=== PATIENT | female | born 2000 | race Caucasian/White ===

== ENCOUNTER 2022-04-13 19:23 | Day surgery (SDC) | payer MEDICAID, OTHER ==
[2022-04-13 19:51] VITALS: BMI 27.8
[2022-04-13 20:25] LABS: Bilirubin Neg (Negative); Blood, Urine 250 (Negative); CAUTI Indications for Culture Pregnancy; Clarity Slightly Cloudy (Clear); Glucose, Urine (Dipstick) Normal (Negative); Ketone, Urine Negative (Negative); Leukocyte 500 (Negative); Nitrite Negative (Negative); Protein, Urine (Dipstick) 500 mg/dl (Neg-Trace); Urobilinogen Normal mg/dL (Less than 2)
[2022-04-13] MEDS ORDERED: Acetaminophen 325 MG TAB PO SCH (20:30)
[2022-04-13 20:35] LABS: Urine Culture Reflex Yes Yes
[2022-04-13 20:43] LABS: RBC/HPF 21-50 HPF (0-3); WBC/HPF 21-50 HPF (0-3)
[2022-04-13 20:44] LABS: Bacteria/HPF 2+ HPF (None Seen); Squamous Epithelial 0-3 HPF (0-3); Transitional Epithelial 0-3 HPF (None Seen)
[2022-04-13 21:25] LABS: ALT (SGPT) 11 U/L (8-55); AST (SGOT) 15 U/L (5-34); Albumin 3.7 g/dL (3.5-5.0); Alkaline Phosphatase 153 U/L (40-100); Anion Gap 13 mmol/L (10-20); BUN (Urea Nitrogen) 6 mg/dL (7.0-18.7); Bilirubin, Total 0.2 mg/dL (0.2-1.2); Calc. Creatinine Clearance 206 mL/min (70-130); Calcium 9.2 mg/dL (7.8-10.44); Carbon Dioxide 23 mmol/L (22-29); Chloride 104 mmol/L (98-107); Estimated GFR 132; Globulin 3.1 g/dL (2.4-3.5); Glucose 92 mg/dL (70-105); Potassium 4.1 mmol/L (3.5-5.1); Protein, Total 6.8 g/dL (6.0-8.3); Sodium 136 mmol/L (136-145)
[2022-04-13 21:50] LABS: #Eosinphils 0.2 10x3/uL (0.0-0.5); #Monocytes 1.1 10x3/uL (0.0-1.1); #Neutrophils 10.7 10x3/uL (1.5-8.4); %Basophils 0.3 % (0.0-2.0); %Eosinophils 1.1 % (0.0-6.0); %Lymphocytes 16.1 % (18.0-47.0); %Monocytes 7.4 % (0.0-10.0); %Neutrophils 74.8 % (40.0-75.0); Hemoglobin 11.3 g/dL (12.0-15.5); Mean Corpuscular HGB CONC 32.6 g/dL (32.0-36.0); Mean Corpuscular Hemoglobin 26.9 pg (27.0-33.0); Mean Corpuscular Volume 82.6 fl (81.6-98.3); Mean Platelet Volume 10.2 fl (7.4-10.4); Platelet Count 417 10x3/uL (150-450); RBC Distribution Width 15.6 % (11.5-14.5); White Blood Cell (WBC) Count 14.4 10x3/uL (3.5-10.5)
[2022-04-13] MEDS ORDERED: cefTRIAXone\\ROCEPHIN 1 GM in Sodium Chloride 0.9% 100 ML IVPB SCH (22:00)
[2022-04-13] MEDS ORDERED: Lactated Ringer's 1,000 ML IV SCH (22:00)
[2022-04-13] MEDS ORDERED: Ondansetron PF 4 MG/2 ML Vial IVP SCH (23:15)
== END 2022-04-13 23:42 | disposition home or self-care (01) ==
LOC: CSHLD/OP 19:23
PROVIDERS: ATTEND Obstetrics & Gynecology
DX: O23.43 Unspecified infection of urinary tract in pregnancy, third trimester (principal); N39.0 Urinary tract infection, site not specified; Z3A.39 39 weeks gestation of pregnancy; Z79.899 Other long term (current) drug therapy
CPT/HCPCS: 76770; 76815; 80053; 81001; 85025; 87086; 96361; 96365; 99284; J0696; J3490

== ENCOUNTER 2022-04-20 05:30 | Inpatient (IN) | payer OTHER ==
[2022-04-20] MEDS ORDERED: Bupivacaine 0.25% HCL 30 ML VIAL ONE (08:00)
[2022-04-20] MEDS ORDERED: Sodium Chloride 0.9% (PF) 10 ML VIAL ONE (08:00)
[2022-04-20] MEDS ORDERED: ePHEDrine Sulfate 50 MG/10 ML VIAL ONE (08:00)
[2022-04-20] MEDS ORDERED: Bupivacaine/Epinephrine 0.25% 30 ML VIAL ONE (08:00)
[2022-04-20] MEDS ORDERED: Ondansetron PF 4 MG/2 ML Vial IVP PRN (21:11)
[2022-04-20] MEDS ORDERED: Acetaminophen 500 MG TAB PO PRN (21:11)
[2022-04-20] MEDS ORDERED: Diphenoxylate HCl/Atropine Tablet PO PRN ×2 (21:11)
[2022-04-20] MEDS ORDERED: hydrALAZINE 20 MG/ML VIAL SLOW IVP PRN (21:11)
[2022-04-20] MEDS ORDERED: Butorphanol Tartrate 1 MG/ML VIAL SLOW IVP PRN (21:11)
[2022-04-20] MEDS ORDERED: Lidocaine 1% (PF) 30 ML VIAL SC PRN (21:11)
[2022-04-20] MEDS ORDERED: HYDROcodone/Acetaminophen 5/325 mg Tablet PO PRN ×2 (21:11)
[2022-04-20] MEDS ORDERED: NS w/ Oxytocin 30 units 500 ML IV SCH ×2 (21:11)
[2022-04-20] MEDS ORDERED: Ibuprofen 800 MG TAB PO PRN (21:11)
[2022-04-20] MEDS ORDERED: Misoprostol 200 MCG TAB PR PRN (21:11)
[2022-04-20] MEDS ORDERED: Docusate 100 MG CAP PO PRN (21:11)
[2022-04-20] MEDS ORDERED: Lactated Ringer's 1,000 ML IV SCH (21:11)
[2022-04-20] MEDS ORDERED: Zolpidem Tartrate 5 MG TAB PO PRN (21:11)
[2022-04-20] MEDS ORDERED: Promethazine HCl 25 MG/ML VIAL IM PRN (21:11)
[2022-04-20 22:15] LABS: Hemoglobin 10.9 g/dL (12.0-15.5); Mean Corpuscular HGB CONC 32.8 g/dL (32.0-36.0); Mean Corpuscular Hemoglobin 26.8 pg (27.0-33.0); Mean Corpuscular Volume 81.8 fl (81.6-98.3); Platelet Count 385 10x3/uL (150-450); RBC Distribution Width 15.9 % (11.5-14.5); Red Blood Cell (RBC) Count 4.06 10x6/uL (3.90-5.03); White Blood Cell (WBC) Count 10.4 10x3/uL (3.5-10.5)
[2022-04-20 22:31] VITALS: BMI 29.2
[2022-04-20 22:52] LABS: Syphilis Antibody Nonreactive (Nonreactive); Syphilis Antibody Index 0.03 S/CO (<1.00 Non-Reactive)
[2022-04-20 22:54] LABS: HBSAg Index 0.15 S/CO (0-0.99); HIV (1/2) Antibody/Antigen Non-Reactive (NonReactive); HIV 1/2 INDEX 0.07 S/CO (<1.00); Hep B Surf Ag Non-Reactive S/CO (NonReactive)
[2022-04-21] MEDS: Misoprostol 100 MCG TAB VAG SCH ×3 (02:19→14:53)
[2022-04-21] MEDS ORDERED: Fentanyl 2 mcg/Bup 0.1% Cadd 100 ML ONE (05:04)
[2022-04-21] MEDS ORDERED: diphenhydrAMINE 50 MG/ML VIAL IVP PRN (05:38)
[2022-04-21] MEDS ORDERED: Naloxone HCl 0.4 mg/ml Vial IVP PRN ×2 (05:38)
[2022-04-21] MEDS ORDERED: ePHEDrine Sulfate 50 MG/10 ML VIAL SLOW IVP PRN (05:38)
[2022-04-21] MEDS ORDERED: Moisturizing Cream (Eucerin) 113 GM JAR TOP PRN (05:38)
[2022-04-21] MEDS ORDERED: Acetaminophen 325 MG TAB PO PRN (05:38)
[2022-04-21] MEDS ORDERED: Ondansetron PF 4 MG/2 ML Vial IVP PRN ×2 (05:38→13:01)
[2022-04-21] MEDS ORDERED: Lactated Ringer's 500 ML IV PRN (05:38)
[2022-04-21] MEDS ORDERED: Promethazine HCl 25 MG/ML VIAL IM PRN (05:38)
[2022-04-21] MEDS ORDERED: Fentanyl 2 mcg/Bupivacaine 0.1% Cassette 100 ML EPIDURAL SCH (05:45)
[2022-04-21] MEDS ORDERED: Communication Order-Pharmacy FS SCH (05:45)
[2022-04-21] MEDS ORDERED: Milk Of Magnesia 30 ML UDCUP PO PRN (13:01)
[2022-04-21] MEDS ORDERED: Zolpidem Tartrate 5 MG TAB PO PRN (13:01)
[2022-04-21] MEDS ORDERED: HYDROcodone/Acetaminophen 5/325 mg Tablet PO PRN ×2 (13:01)
[2022-04-21] MEDS ORDERED: Lanolin Ointment 7 GM TUBE TOP PRN (13:01)
[2022-04-21] MEDS ORDERED: diphenhydrAMINE 25 MG CAP PO PRN (13:01)
[2022-04-21] MEDS ORDERED: Preparation H Ointment 28 GM TUBE PR PRN (13:01)
[2022-04-21] MEDS ORDERED: Benzocaine-Menthol 82.5 ML CAN TOP PRN (13:01)
[2022-04-21] MEDS ORDERED: hydrALAZINE 20 MG/ML VIAL SLOW IVP PRN (13:01)
[2022-04-21] MEDS ORDERED: Misoprostol 200 MCG TAB VAG PRN (13:01)
[2022-04-21] MEDS ORDERED: Boostrix 0.5 ML (Tdap) VIAL (>/=7 yrs of age) IM ONE (13:01)
[2022-04-21] MEDS ORDERED: Bisacodyl 10 MG SUPP PR PRN (13:01)
[2022-04-21] MEDS ORDERED: Witch Hazel-Glycerin 1 EACH JAR TOP PRN (13:03)
[2022-04-21] MEDS ORDERED: NS w/ Oxytocin 30 units 500 ML IV SCH (13:15)
[2022-04-21 13:31] LABS: SARS-CoV-2 NAA Rapid Test Not Detected (NotDetected)
[2022-04-21] MEDS: Ibuprofen 800 MG TAB PO SCH ×2 (15:39→21:03)
[2022-04-21] MEDS: Ferrous Sulfate 325 MG TAB PO SCH (16:50)
[2022-04-21] MEDS: Docusate 100 MG CAP PO SCH (21:04)
[2022-04-22 05:05] LABS: Hemoglobin 10.1 g/dL (12.0-15.5); Mean Corpuscular HGB CONC 32.5 g/dL (32.0-36.0); Mean Corpuscular Hemoglobin 26.9 pg (27.0-33.0); Mean Corpuscular Volume 82.7 fl (81.6-98.3); Mean Platelet Volume 9.9 fl (7.4-10.4); Platelet Count 306 10x3/uL (150-450); RBC Distribution Width 16.4 % (11.5-14.5); Red Blood Cell (RBC) Count 3.76 10x6/uL (3.90-5.03); White Blood Cell (WBC) Count 12.7 10x3/uL (3.5-10.5)
[2022-04-22] MEDS: Ibuprofen 800 MG TAB PO SCH ×2 (06:02→13:37)
[2022-04-22] MEDS: Ferrous Sulfate 325 MG TAB PO SCH ×2 (07:19→17:48)
[2022-04-22] MEDS: Docusate 100 MG CAP PO SCH (08:06)
[2022-04-22] MEDS ORDERED: Prenatal Vitamin 1 TAB PO SCH (09:00)
[2022-04-22 11:51] VITALS: BP 126/81; TEMP 98.7
== END 2022-04-22 18:20 | disposition home or self-care (01) | DRG 807 ==
LOC: CSHLD 20:41 → CSHPP 04-21 15:16
PROVIDERS: ADMIT Obstetrics & Gynecology; ATTEND Obstetrics & Gynecology
PROC: 10E0XZZ Delivery of Products of Conception, External Approach (ICD-10-PCS; principal; 2022-04-21)
PROC: 3E0P7VZ Introduction of Hormone into Female Reproductive, Via Natural or Artificial Opening (ICD-10-PCS; 2022-04-21)
PROC: 0UQMXZZ Repair Vulva, External Approach (ICD-10-PCS; 2022-04-21)
DX: O48.0 Post-term pregnancy (principal); Z37.0 Single live birth; O99.02 Anemia complicating childbirth; Z20.822 Contact with and (suspected) exposure to COVID-19; Z3A.40 40 weeks gestation of pregnancy; D64.9 Anemia, unspecified; Z79.899 Other long term (current) drug therapy; O42.02 Full-term premature rupture of membranes, onset of labor within 24 hours of rupture; O71.82 Other specified trauma to perineum and vulva
CPT/HCPCS: 36415; 51702; 85027; 86780; 86850; 86900; 86901; 87340; 87389; J0595; J2590; S0020; U0002

== ENCOUNTER 2024-05-14 17:10 | Emergency (ER) | payer SELFPAY ==
[2024-05-14 17:36] LABS: Bilirubin Neg (Negative); Blood, Urine 250 (Negative); Clarity Clear (Clear); Glucose, Urine (Dipstick) Normal (Negative); Ketone, Urine Negative (Negative); Leukocyte 25 (Negative); Nitrite Negative (Negative); Protein, Urine (Dipstick) Negative (Neg-Trace); Urobilinogen Normal mg/dL (Less than 2)
[2024-05-14 17:58] LABS: Bacteria/HPF 2+ HPF (None Seen); CAUTI Indications for Culture Pregnancy
[2024-05-14 17:59] LABS: Mucous/LPF 3+ LPF (<2+)
[2024-05-14 18:00] LABS: Urine Culture Reflex Yes Yes
[2024-05-14 18:20] LABS: #Basophils 0.07 10x3/uL (0.0-0.2); #Eosinophils 0.51 10x3/uL (0.0-0.5); #Monocytes 0.63 10x3/uL (0.0-1.1); #Neutrophils 4.81 10x3/uL (1.5-8.4); %Basophils 0.9 % (0.0-2.0); %Eosinophils 6.3 % (0.0-6.0); %Lymphocytes 25.4 % (18.0-47.0); %Monocytes 7.8 % (0.0-10.0); %Neutrophils 59.4 % (40.0-75.0); Hemoglobin 12.5 g/dL (12.0-15.5); Mean Corpuscular HGB CONC 32.9 g/dL (32.0-36.0); Mean Corpuscular Hemoglobin 28.8 pg (27.0-33.0); Mean Corpuscular Volume 87.6 fL (81.6-98.3); Platelet Count 349 10x3/uL (150-450); RBC Distribution Width 13.2 % (11.5-14.5); Red Blood Cell (RBC) Count 4.34 10x6/uL (3.90-5.03)
[2024-05-14 18:35] LABS: ALT (SGPT) 15 U/L (8-55); AST (SGOT) 12 U/L (5-34); Albumin 3.8 g/dL (3.5-5.0); Alkaline Phosphatase 51 U/L (40-110); Anion Gap 10 mmol/L (10-20); BUN (Urea Nitrogen) 8 mg/dL (7.0-18.7); Bilirubin, Total 0.2 mg/dL (0.2-1.2); Calc. Creatinine Clearance 0 mL/min (70-130); Calcium 8.7 mg/dL (7.8-10.44); Carbon Dioxide 22 mmol/L (22-29); Chloride 109 mmol/L (98-107); Estimated GFR 128; Globulin 2.9 g/dL (2.4-3.5); Glucose 98 mg/dL (70-105); Potassium 4.1 mmol/L (3.5-5.1); Protein, Total 6.7 g/dL (6.0-8.3); Sodium 137 mmol/L (136-145)
== END 2024-05-14 20:30 | disposition home or self-care (01) ==
LOC: CSHERS 17:10
DX: O20.9 Hemorrhage in early pregnancy, unspecified (principal); O23.41 Unspecified infection of urinary tract in pregnancy, first trimester; N39.0 Urinary tract infection, site not specified; Z3A.01 Less than 8 weeks gestation of pregnancy
CPT/HCPCS: 76856; 80053; 81001; 84702; 85025; 86850; 86900; 86901; 87086